=== PATIENT | female | born 1995 | race Caucasian/White ===

== ENCOUNTER 2021-03-30 12:38 | Emergency (ER) | payer OTHER ==
[~2021-03-30] VITALS: Ht 152.4 cm; Wt 47.2 kg
== END 2021-03-30 16:11 | disposition home or self-care (01) ==
LOC: ER 12:38
DX: E86.0 Dehydration (principal); R11.10 Vomiting, unspecified; R11.0 Nausea

== ENCOUNTER 2022-10-17 11:07 | Emergency (ER) | payer OTHER ==
[~2022-10-17] VITALS: Ht 152.4 cm; Wt 53.5 kg
[2022-10-17] MEDS ORDERED: ADVIL100 M1 (11:22)
[2022-10-17] MEDS ORDERED: LANSOPRAZOLE30 MG (11:22)
[2022-10-17] MEDS ORDERED: CLARITIN10 M1 (11:22)
== END 2022-10-17 13:45 | disposition home or self-care (01) ==
LOC: ER 11:07
DX: N94.6 Dysmenorrhea, unspecified (principal)